=== PATIENT | male | born 1965 | race Caucasian/White ===

== ENCOUNTER 2023-09-10 09:28 | Outpatient (RCR) | payer OTHER, SELFPAY ==
[2023-09-10 09:50] VITALS: BP 144/87
[2023-09-10 10:04] LABS: Hemoglobin 15.6 g/dL (13.0-18.0)
[2023-09-10 10:15] VITALS: BP 149/83
[2023-09-10 10:15] LABS: Iron 218 ug/dl (49-181)
[2023-09-10 10:20] VITALS: BP 121/91
[2023-09-10 10:24] LABS: Percent Saturation 68 % (20-50); Total Iron Binding Capacity 318 ug/dl (261-462)
[2023-09-10 11:54] LABS: Ferritin 16.8 ng/ml (17.9-464.0)
== END 2023-09-10 23:59 | disposition home or self-care (01) ==
LOC: OID 09:28
PROVIDERS: ATTENDING PHYSICIAN Family Medicine
DX: E83.110 Hereditary hemochromatosis (principal)
CPT/HCPCS: 82728; 83540; 83550; 85014; 85018; 99195

== ENCOUNTER 2023-10-22 08:07 | Outpatient (RCR) | payer OTHER, SELFPAY ==
[2023-10-22 08:19] LABS: % Basophils 0.2 % (0-2); % Immature Granulocytes 0.2 % (0-0.5); % Lymphocytes 33.8 % (20.5-51.1); % Monocytes 9.1 % (1.7-9.3); % Neutrophils 52.7 % (42.2-75.2); Absolute Eosinophils 0.2 10^3/uL (0-0.7); Absolute Monocytes 0.5 10^3/uL (0.1-0.6); Absolute Neutrophils 3.1 10^3/uL (1.4-6.5); Hematocrit 45.4 % (39.0-52.0); Mean Corp Hgb Conc. 35.2 g/dL (33.0-37.0); Mean Corpuscular Hgb 30.6 pg (27.0-31.0); Mean Corpuscular Volume 86.8 fL (80.0-94.0); Mean Platelet Volume 9.2 fL (7.4-10.4); Platelet Count 216 10^3/uL (130-400); Red Blood Cell Count 5.23 10^6/uL (4.70-6.10); Red Cell Dist. Width 13.1 % (11.5-14.5); White Blood Cell Count 5.8 10^3/uL (4.8-10.8)
[2023-10-22 08:31] VITALS: BP 154/99
[2023-10-22 08:49] LABS: Glycohemoglobin (HgbA1c) 5.3 % (4.0-5.6)
[2023-10-22 08:50] LABS: ALT (SGPT) 34 U/L (0-50); AST (SGOT) 26 U/L (17-59); Albumin 4.8 g/dl (3.5-5.0); Alkaline Phosphatase 79 U/L (38-126); Blood Urea Nitrogen 12 mg/dl (9-20); Calcium 9.3 mg/dl (8.4-10.2); Carbon Dioxide 25 mmol/L (22-30); Chloride 99 mmol/L (98-107); Glucose 101 mg/dl (70-99); HDL Cholesterol 50 mg/dl; Iron 184 ug/dl (49-181); LDL Cholesterol, Calculated 122 mg/dl; Potassium 4.6 mmol/L (3.5-5.1); Sodium 130 mmol/L (135-145); Total Bilirubin 0.9 mg/dl (0.2-1.3); Total Cholesterol 192 mg/dl (50-199); Total Protein 7.6 g/dl (6.3-8.2); Triglyceride 100 mg/dl (10-149); Very Low Density Lipoprotein 20 mg/dl (0-30); eGFR > 60.00
[2023-10-22 08:59] LABS: Percent Saturation 54 % (20-50); Total Iron Binding Capacity 338 ug/dl (261-462)
[2023-10-22 09:15] VITALS: BP 107/77; BP 124/91
[2023-10-22 10:06] LABS: Urine Albumin Negative (Neg - Trace); Urine Bilirubin Negative (Negative); Urine Character Clear (Clear); Urine Color Yellow; Urine Glucose Negative (Negative); Urine Ketone Negative (Negative); Urine Leukocyte Negative (Negative); Urine Nitrite Negative (Negative); Urine Occult Blood Negative (Negative); Urine Urobilinogen Negative (Neg - 1+)
[2023-10-22 11:07] LABS: PSA, Total - Screen 1.31 ng/ml (0.0-4.0)
[2023-10-22 11:11] LABS: Ferritin 14.1 ng/ml (17.9-464.0)
== END 2023-11-10 23:59 | disposition home or self-care (01) ==
LOC: OID 08:07
PROVIDERS: ATTENDING PHYSICIAN Family Medicine
DX: E83.110 Hereditary hemochromatosis (principal)
CPT/HCPCS: 36415; 80053; 80061; 81003; 82728; 83036; 83540; 83550; 85025; 99195; G0103

== ENCOUNTER 2023-12-17 07:56 | Outpatient (RCR) | payer OTHER, SELFPAY ==
[2023-12-17 08:31] VITALS: BP 116/71
[2023-12-17 08:45] LABS: Hematocrit 45.3 % (39.0-52.0)
[2023-12-17 09:15] LABS: Iron 152 ug/dl (49-181)
[2023-12-17 09:17] VITALS: BP 102/62; BP 133/92
[2023-12-17 09:25] LABS: Percent Saturation 52 % (20-50); Total Iron Binding Capacity 292 ug/dl (261-462)
[2023-12-17 11:14] LABS: Ferritin 21.3 ng/ml (17.9-464.0)
== END 2023-12-18 09:42 | disposition home or self-care (01) ==
LOC: OID 07:56
PROVIDERS: ATTENDING PHYSICIAN Family Medicine
DX: E83.110 Hereditary hemochromatosis (principal); Z72.0 Tobacco use
CPT/HCPCS: 36415; 82728; 83540; 83550; 85014; 85018; 99195

== ENCOUNTER 2024-02-03 08:45 | Outpatient (RCR) | payer OTHER, SELFPAY ==
[2024-02-03 08:53] LABS: Hematocrit 40.8 % (39.0-52.0); Hemoglobin 14.7 g/dL (13.0-18.0)
[2024-02-03 09:20] VITALS: BP 142/85
[2024-02-03 09:41] VITALS: BP 126/83
[2024-02-03 09:41] LABS: Iron 178 ug/dl (49-181)
[2024-02-03 09:46] VITALS: BP 124/83
[2024-02-03 09:52] LABS: Percent Saturation 64 % (20-50); Total Iron Binding Capacity 277 ug/dl (261-462)
[2024-02-03 10:18] LABS: Ferritin 29.7 ng/ml (17.9-464.0)
== END 2024-02-10 23:59 | disposition home or self-care (01) ==
LOC: OID 08:45
PROVIDERS: ATTENDING PHYSICIAN Family Medicine
DX: E83.110 Hereditary hemochromatosis (principal)
CPT/HCPCS: 36415; 82728; 83540; 83550; 85014; 85018; 99195

== ENCOUNTER 2024-03-31 08:14 | Outpatient (RCR) | payer OTHER, SELFPAY ==
[2024-03-31 08:27] LABS: Hematocrit 42.5 % (39.0-52.0); Hemoglobin 15.1 g/dL (13.0-18.0)
[2024-03-31 08:38] VITALS: BP 147/92
[2024-03-31 09:03] VITALS: BP 133/95
[2024-03-31 09:16] LABS: Iron 221 ug/dl (49-181)
[2024-03-31 09:26] LABS: Percent Saturation 77 % (20-50); Total Iron Binding Capacity 284 ug/dl (261-462)
== END 2024-04-01 08:52 | disposition home or self-care (01) ==
LOC: OID 08:14
PROVIDERS: ATTENDING PHYSICIAN Family Medicine
DX: E83.110 Hereditary hemochromatosis (principal)
CPT/HCPCS: 36415; 82728; 83540; 83550; 85014; 85018; 99195

== ENCOUNTER 2024-05-12 08:05 | Outpatient (RCR) | payer OTHER, SELFPAY ==
[2024-05-12 08:28] LABS: Hematocrit 43.7 % (39.0-52.0); Hemoglobin 15.4 g/dL (13.0-18.0)
[2024-05-12 08:38] VITALS: BP 143/94
[2024-05-12 09:02] VITALS: BP 117/95
[2024-05-12 09:03] VITALS: BP 140/87
[2024-05-12 10:06] LABS: Iron 95 ug/dl (49-181)
[2024-05-12 10:16] LABS: Percent Saturation 29 % (20-50); Total Iron Binding Capacity 327 ug/dl (261-462)
== END 2024-05-12 23:59 | disposition home or self-care (01) ==
LOC: OID 08:05
PROVIDERS: ATTENDING PHYSICIAN Family Medicine
DX: E83.110 Hereditary hemochromatosis (principal)
CPT/HCPCS: 36415; 82728; 83540; 83550; 85014; 85018; 99195

== ENCOUNTER 2024-06-30 08:11 | Outpatient (RCR) | payer OTHER, SELFPAY ==
[2024-06-30 08:32] LABS: Hematocrit 44.6 % (39.0-52.0); Hemoglobin 15.3 g/dL (13.0-18.0)
[2024-06-30 08:35] VITALS: BP 131/93
[2024-06-30 09:05] VITALS: BP 127/83
[2024-06-30 09:10] VITALS: BP 126/89
[2024-06-30 10:34] LABS: Iron 96 ug/dl (49-181)
[2024-06-30 10:46] LABS: Percent Saturation 27 % (20-50); Total Iron Binding Capacity 345 ug/dl (261-462)
[2024-06-30 11:11] LABS: Ferritin 11.1 ng/ml (17.9-464.0)
== END 2024-07-01 09:31 | disposition home or self-care (01) ==
LOC: OID 08:11
PROVIDERS: ATTENDING PHYSICIAN Physician Assistant; PRIMARYCARE PHYSICIAN Family Medicine
DX: E83.110 Hereditary hemochromatosis (principal)
CPT/HCPCS: 36415; 82728; 83540; 83550; 85014; 85018; 99195

== ENCOUNTER 2024-08-19 08:05 | Outpatient (RCR) | payer OTHER, SELFPAY ==
[2024-08-19 08:36] LABS: Hematocrit 44.2 % (39.0-52.0); Hemoglobin 15.2 g/dL (13.0-18.0)
[2024-08-19 08:37] VITALS: BP 124/84
[2024-08-19 09:07] VITALS: BP 142/82
[2024-08-19 09:09] VITALS: BP 143/99
[2024-08-19 09:29] LABS: Iron 79 ug/dl (49-181)
[2024-08-19 09:38] LABS: Percent Saturation 23 % (20-50); Total Iron Binding Capacity 342 ug/dl (261-462)
== END 2024-08-22 09:51 | disposition home or self-care (01) ==
LOC: OID 08:05
PROVIDERS: ATTENDING PHYSICIAN Physician Assistant; PRIMARYCARE PHYSICIAN Family Medicine
DX: E83.110 Hereditary hemochromatosis (principal); F17.210 Nicotine dependence, cigarettes, uncomplicated
CPT/HCPCS: 36415; 82728; 83540; 83550; 85014; 85018; 99195

== ENCOUNTER → 2024-08-29 12:37 | Outpatient (REF) | payer OTHER, SELFPAY | LOC: HWRAD 12:37 | PROVIDERS: ATTENDING PHYSICIAN Physician Assistant | DX: F17.200 Nicotine dependence, unspecified, uncomplicated (principal) | CPT/HCPCS: 71271 ==

== ENCOUNTER 2024-10-14 08:12 | Outpatient (RCR) | payer OTHER, SELFPAY ==
[2024-10-14 08:50] LABS: % Basophils 0.2 % (0-2); % Eosinophils 4.9 % (0-6); % Lymphocytes 37.6 % (20.5-51.1); % Monocytes 8.9 % (1.7-9.3); % Neutrophils 48.4 % (42.2-75.2); Absolute Eosinophils 0.2 10^3/uL (0-0.7); Absolute Lymphocytes 1.8 10^3/uL (1.2-3.4); Absolute Monocytes 0.4 10^3/uL (0.1-0.6); Absolute Neutrophils 2.3 10^3/uL (1.4-6.5); Hematocrit 42.8 % (39.0-52.0); Hemoglobin 14.7 g/dL (13.0-18.0); Mean Corp Hgb Conc. 34.3 g/dL (33.0-37.0); Mean Corpuscular Hgb 27.9 pg (27.0-31.0); Mean Corpuscular Volume 81.4 fL (80.0-94.0); Mean Platelet Volume 8.7 fL (7.4-10.4); Platelet Count 225 10^3/uL (130-400); Red Blood Cell Count 5.26 10^6/uL (4.70-6.10); Red Cell Dist. Width 13.6 % (11.5-14.5); White Blood Cell Count 4.7 10^3/uL (4.8-10.8)
[2024-10-14 09:01] VITALS: BP 141/95
[2024-10-14 09:09] VITALS: BP 126/77; BP 137/88
[2024-10-14 09:50] LABS: Urine Albumin 1+ (Neg - Trace); Urine Bilirubin Negative (Negative); Urine Character Clear (Clear); Urine Color Yellow; Urine Glucose Negative (Negative); Urine Ketone Negative (Negative); Urine Leukocyte Negative (Negative); Urine Nitrite Negative (Negative); Urine Occult Blood Negative (Negative); Urine Urobilinogen Negative (Neg - 1+)
[2024-10-14 10:20] LABS: ALT (SGPT) 33 U/L (0-50); AST (SGOT) 24 U/L (17-59); Albumin 4.5 g/dl (3.5-5.0); Alkaline Phosphatase 75 U/L (38-126); Blood Urea Nitrogen 16 mg/dl (9-20); Calcium 9.2 mg/dl (8.4-10.2); Carbon Dioxide 24 mmol/L (22-30); Chloride 99 mmol/L (98-107); Glucose 103 mg/dl (70-99); HDL Cholesterol 43 mg/dl; Iron 173 ug/dl (49-181); LDL Cholesterol, Calculated 138 mg/dl; Potassium 4.8 mmol/L (3.5-5.1); Sodium 132 mmol/L (135-145); Total Bilirubin 0.9 mg/dl (0.2-1.3); Total Cholesterol 200 mg/dl (50-199); Total Protein 7.2 g/dl (6.3-8.2); Triglyceride 99 mg/dl (10-149); Very Low Density Lipoprotein 19 mg/dl (0-30); eGFR > 60.00
[2024-10-14 10:22] LABS: Ferritin 10.6 ng/ml (17.9-464.0)
[2024-10-14 10:29] LABS: Percent Saturation 50 % (20-50); Total Iron Binding Capacity 345 ug/dl (261-462)
[2024-10-14 10:31] LABS: Urine Mucus Few
[2024-10-14 10:32] LABS: Urine Amorphous Seen; Urine Squamous Cell 0-2 /LPF (Few)
[2024-10-14 10:33] LABS: Urine Urothelial Cell 0-2 /LPF (FEW)
[2024-10-14 10:38] LABS: Urine Granular Cast 0-2 /LPF (0)
[2024-10-14 10:39] LABS: Urine Red Blood Cell 0-2 /HPF (0-2); Urine White Cell 0-2 /HPF (0-5)
[2024-10-15 20:09] LABS: PSA Total 1.2 ng/mL (0.0-4.0)
== END 2024-11-09 23:59 | disposition home or self-care (01) ==
LOC: OID 08:12
PROVIDERS: ATTENDING PHYSICIAN Physician Assistant; PRIMARYCARE PHYSICIAN Family Medicine
DX: E83.110 Hereditary hemochromatosis (principal)
CPT/HCPCS: 36415; 80053; 80061; 81003; 81015; 82728; 83540; 83550; 84153; 84154; 85025; 99195

== ENCOUNTER 2024-12-09 08:12 | Outpatient (RCR) | payer OTHER, SELFPAY ==
[2024-12-09 08:43] LABS: Hematocrit 41.1 % (39.0-52.0); Hemoglobin 14.3 g/dL (13.0-18.0)
[2024-12-09 08:49] VITALS: BP 138/72
[2024-12-09 09:15] VITALS: BP 134/72
[2024-12-09 09:16] VITALS: BP 134/93
[2024-12-09 09:25] LABS: Iron 91 ug/dl (49-181)
[2024-12-09 09:34] LABS: Percent Saturation 26 % (20-50); Total Iron Binding Capacity 339 ug/dl (261-462)
[2024-12-09 09:59] LABS: Ferritin 9.4 ng/ml (17.9-464.0)
== END 2024-12-10 23:59 | disposition home or self-care (01) ==
LOC: OID 08:12
PROVIDERS: ATTENDING PHYSICIAN Physician Assistant; PRIMARYCARE PHYSICIAN Family Medicine
DX: E83.110 Hereditary hemochromatosis (principal)
CPT/HCPCS: 36415; 82728; 83540; 83550; 85014; 85018; 99195

== ENCOUNTER → 2025-01-06 14:38 | Outpatient (REF) | payer OTHER, SELFPAY | LOC: HWRAD 14:38 | PROVIDERS: ATTENDING PHYSICIAN Physician Assistant | DX: E78.2 Mixed hyperlipidemia (principal) | CPT/HCPCS: 75571 ==

== ENCOUNTER 2025-02-02 08:06 | Outpatient (RCR) | payer OTHER, SELFPAY ==
[2025-02-02 08:21] LABS: Hematocrit 44.2 % (39.0-52.0); Hemoglobin 14.8 g/dL (13.0-18.0)
[2025-02-02 08:31] VITALS: BP 134/93
[2025-02-02 09:01] VITALS: BP 135/82
[2025-02-02 09:04] VITALS: BP 121/81
[2025-02-02 09:45] LABS: Iron 60 ug/dl (49-181)
[2025-02-02 09:54] LABS: Total Iron Binding Capacity 358 ug/dl (261-462)
[2025-02-02 11:27] LABS: Ferritin 7.8 ng/ml (17.9-464.0)
== END 2025-02-09 23:59 | disposition home or self-care (01) ==
LOC: OID 08:06
PROVIDERS: ATTENDING PHYSICIAN Physician Assistant; PRIMARYCARE PHYSICIAN Family Medicine
DX: E83.110 Hereditary hemochromatosis (principal); F17.200 Nicotine dependence, unspecified, uncomplicated
CPT/HCPCS: 36415; 82728; 83540; 83550; 85014; 85018; 99195

== ENCOUNTER 2025-03-30 08:25 | Outpatient (RCR) | payer OTHER, SELFPAY ==
[2025-03-30 08:25] LABS: Hematocrit 43.3 % (39.0-52.0); Hemoglobin 14.6 g/dL (13.0-18.0)
[2025-03-30 08:33] VITALS: BP 137/78
[2025-03-30 09:04] VITALS: BP 125/79
[2025-03-30 09:06] VITALS: BP 112/83
[2025-03-30 09:34] LABS: Iron 61 ug/dl (49-181)
[2025-03-30 09:44] LABS: Total Iron Binding Capacity 346 ug/dl (261-462)
[2025-03-30 11:13] LABS: Ferritin 8.5 ng/ml (17.9-464.0)
== END 2025-04-11 23:59 | disposition home or self-care (01) ==
LOC: OID 08:25
PROVIDERS: ATTENDING PHYSICIAN Physician Assistant; PRIMARYCARE PHYSICIAN Family Medicine
DX: E83.110 Hereditary hemochromatosis (principal); F17.200 Nicotine dependence, unspecified, uncomplicated
CPT/HCPCS: 36415; 82728; 83540; 83550; 85014; 85018; 99195

== ENCOUNTER 2025-05-23 13:23 | Outpatient (RCR) | payer OTHER, SELFPAY ==
[2025-05-23 13:47] LABS: Hematocrit 40.6 % (39.0-52.0); Hemoglobin 13.5 g/dL (13.0-18.0)
[2025-05-23 13:53] VITALS: BP 130/84
[2025-05-23 14:20] LABS: Iron 97 ug/dl (49-181)
[2025-05-23 14:23] VITALS: BP 135/83
[2025-05-23 14:25] VITALS: BP 136/82
[2025-05-23 14:30] LABS: Total Iron Binding Capacity 335 ug/dl (261-462)
[2025-05-23 14:57] LABS: Ferritin 11.5 ng/ml (17.9-464.0)
== END 2025-06-11 23:59 | disposition home or self-care (01) ==
LOC: OID 13:23
PROVIDERS: ATTENDING PHYSICIAN Physician Assistant; PRIMARYCARE PHYSICIAN Family Medicine
DX: E83.110 Hereditary hemochromatosis (principal); F17.200 Nicotine dependence, unspecified, uncomplicated
CPT/HCPCS: 36415; 82728; 83540; 83550; 85014; 85018; 99195

== ENCOUNTER → 2025-07-11 08:04 | Outpatient (REF) | payer OTHER, SELFPAY | LOC: RCS 08:04 | PROVIDERS: ATTENDING PHYSICIAN Internal Medicine Interventional Cardiology; FAMILY PHYSICIAN Physician Assistant | DX: R93.1 Abnormal findings on diagnostic imaging of heart and coronary circulation (principal); I10 Essential (primary) hypertension | CPT/HCPCS: 93306 ==

== ENCOUNTER 2025-07-11 08:59 | Outpatient (RCR) | payer OTHER, SELFPAY ==
[2025-07-11 09:20] LABS: Hematocrit 40.4 % (39.0-52.0); Hemoglobin 13.7 g/dL (13.0-18.0); Mean Corp Hgb Conc. 33.9 g/dL (33.0-37.0); Mean Corpuscular Volume 81.3 fL (80.0-94.0); Platelet Count 197 10^3/uL (130-400); Red Cell Dist. Width 14.6 % (11.5-14.5)
[2025-07-11 09:53] LABS: ALT (SGPT) 55 U/L (0-50); AST (SGOT) 32 U/L (17-59); Albumin 4.8 g/dl (3.5-5.0); Alkaline Phosphatase 65 U/L (38-126); Blood Urea Nitrogen 12 mg/dl (9-20); Calcium 9.1 mg/dl (8.4-10.2); Carbon Dioxide 26 mmol/L (22-30); Chloride 100 mmol/L (98-107); Glucose 98 mg/dl (70-99); HDL Cholesterol 53 mg/dl; Iron 63 ug/dl (49-181); LDL Cholesterol, Calculated 75 mg/dl; Potassium 5.0 mmol/L (3.5-5.1); Sodium 133 mmol/L (135-145); Total Protein 7.7 g/dl (6.3-8.2); Very Low Density Lipoprotein 13 mg/dl (0-30); eGFR > 60.00
[2025-07-11 10:02] LABS: Total Iron Binding Capacity 357 ug/dl (261-462)
[2025-07-11 10:29] LABS: Ferritin 8.8 ng/ml (17.9-464.0)
[2025-07-11 10:51] VITALS: BP 146/80
[2025-07-11 11:14] VITALS: BP 132/77
[2025-07-11 11:15] VITALS: BP 109/81
== END 2025-07-12 23:59 | disposition home or self-care (01) ==
LOC: OID 08:59
PROVIDERS: ATTENDING PHYSICIAN Physician Assistant; PRIMARYCARE PHYSICIAN Family Medicine; REFERRING PHYSICIAN Internal Medicine Interventional Cardiology
DX: E83.110 Hereditary hemochromatosis (principal); F17.200 Nicotine dependence, unspecified, uncomplicated
CPT/HCPCS: 36415; 80053; 80061; 82728; 83540; 83550; 85025